=== PATIENT | female | born 1990 | race Caucasian/White ===

== ENCOUNTER 2017-03-11 21:30 | Emergency (ER) | payer MEDICAID ==
[~2017-03-11] VITALS: Ht 147.3 cm; Wt 51.4 kg
[~2017-03-11 21:30] MED LIST: LISI10TA3 PO; NORC5TAB PO; PENI500T PO
[2017-03-11 21:40] VITALS: BP 197/115; PULSE 92; RESP 20; TEMP 99; O2SAT 92
--- NOTE | 2017-03-11 22:08 | PD ---
HPI Chief Complaint: Fall Time Seen by Provider: 21:56 Travel History International Travel<30 days: No Contact w/Intl Traveler<30days: No Traveled to known affect area: No History of Present Illness HPI 26-year-old female complains of left-sided neck pain and left shoulder pain. Patient states that she fell a week ago on her buttock. Patient states that she started having persistent pain on left-sided neck, left shoulder pad And left shoulder since then. Patient denies any loss of consciousness. Patient denies any headache. Patient denies any focal weakness and numbness of extremity. Patient states the pain or left shoulder is worse with movement. Patient denies any chest pain or shortness of breath. Patient denies abdominal pain. Patient denies any back pain. Patient denies any chance of being . Patient states that she has a cold about 2 weeks ago. Patient denies earache or sore throat. Patient denies any fever chills. PFSH Past Medical History Cancer: No Cardiovascular Problems: Yes (HTN) Diminished Hearing: No Endocrine: No Genitourinary: No Hypertension: Yes Immune Disorder: No Musculoskeletal: No Neurologic: No Psychiatric: No Reproductive: No Respiratory: No Immunizations Current: Yes ?: Unknown LMP: 10 15 17 Past Surgical History Oral Surgery: Yes (WISDOM TEETH) Social History Alcohol Use: No Tobacco Use: No Substance Use: No Allergies-Medications (Allergen,Severity, Reaction): Coded Allergies: latex (Unverified Allergy, Severe, BLISTERS ON SKIN, 12/16/16) Reported Meds & Prescriptions Reported Meds & Active Scripts Active Review of Systems General / Constitutional: No: Fever Eyes: No: Visual changes HENT: Positive: Neck Pain, No: Headaches Cardiovascular: No: Chest Pain or Discomfort Respiratory: No: Shortness of Breath Gastrointestinal: No: Abdominal Pain Genitourinary: No: Dysuria Musculoskeletal: Positive: Pain Skin: No Rash Neurologic: No: Weakness Psychiatric: No: Depression Endocrine: No: Polydipsia Hematologic/Lymphatic: No: Easy Bruising Physical Exam Narrative GENERAL: Well-nourished, well-developed patient. SKIN: Focused skin assessment warm/dry. HEAD: Normocephalic. EYES: No scleral icterus. No injection or drainage. TM: Clear. Throat: Nonerythematous. NECK: Supple, trachea midline. No JVD . Patient has anterior and posterior cervical lymphadenopathy. No meningismus Patient has moderate tenderness on palpation paraspinal area cervical spine especially the left-sided neck. No midline tenderness. No crepitus no deformity noted. CARDIOVASCULAR: Regular rate and rhythm without murmurs, gallops, or rubs. RESPIRATORY: Breath sounds equal bilaterally. No accessory muscle use. GASTROINTESTINAL: Abdomen soft, non-tender, nondistended. MUSCULOSKELETAL: No cyanosis, or edema. Patient has moderate tenderness on palpation left shoulder pad area severe aspect left shoulder and around the clavicle area. Limited range of motion left shoulder secondary to pain. Sensorimotor function distally intact. BACK: Nontender without obvious deformity. No CVA tenderness. Neurologic exam normal. Data Data Last Documented VS Vital Signs Date Time Temp Pulse Resp B/P (MAP) Pulse Ox O2 Delivery O2 Flow Rate FiO2 03/11/17 22:03 18 100 Room Air 03/11/17 21:40 99.0 92 197/115 (142) Orders Orders Ct Cerv Spine W/O Contrast (03/11/17 21:59) Shoulder, Limited(2vws) (03/11/17 21:59) [facility] Medical Decision Making Medical Screen Exam Complete: Yes Emergency Medical Condition: Yes Interpretation(s) Last Impressions Shoulder X-Ray 03/11/172158 Signed Impressions: Service Date/Time: Saturday, March 11, 2017 22:08 - CONCLUSION: Unremarkable limited examination of the left shoulder. Shlomo Faust Jr., MD Cervical Spine CT 03/11/172158 Signed Impressions: Service Date/Time: Saturday, March 11, 2017 22:10 - CONCLUSION: 1. No fracture or dislocation. 2. Stranding of the subcutaneous fat involving the left neck as well as mild adenopathy of the left neck suggesting an acute inflammatory process with reactive adenopathy. Clinical evaluation for any signs of synovitis or lymphadenitis suggested. Shlomo Faust Jr., MD Differential Diagnosis Differential diagnosis including strain, fracture, dislocation. Narrative Course 26-year-old female with neck and left shoulder injury. Examination reveals cervical adenopathy. No obvious source of infection. Augmentin 875, one tablet by mouth given. Tylenol 650 mg by mouth given. Diagnosis Primary Impression: Cervical lymphadenitis Additional Impressions: Neck strain Qualified Codes: S16.1XXA - Strain of muscle, fascia and tendon at neck level , initial encounter Shoulder strain Qualified Codes: S46.912A - Strain of unspecified muscle, fascia and tendon at shoulder and upper arm level, left arm, initial encounter Patient Instructions: General Instructions Additional Instructions: Take medication as directed. Follow-up with local physician. Return if worse. Med/Other Pt SpecificInfo: Prescription(s) given Scripts Tramadol (Ultram) 50 Mg Tab 50 MG PO Q6H Y for PAIN, #12 TAB 0 Refills Prov: Gianni Rose MD 03/11/17 Meloxicam (Mobic) 15 Mg Tab 15 MG PO DAILY for Pain, #10 TAB 0 Refills Prov: Gianni Rose MD 03/11/17 Amoxicillin-Clavulanate (Augmentin) 875-125 Mg Tab 1 TAB PO BID for Infection, #20 TAB 0 Refills Prov: Gianni Rose MD 03/11/17 Disposition: 01 DISCHARGE HOME Condition: Stable Gianni Rose MD Mar 11, 2017 22:08
--- NOTE | 2017-03-11 22:29 | RADRPT ---
EXAM DATE/TIME: 03/11/2017 22:08 [facility] COMPARISON: No previous studies available for comparison. INDICATIONS : Left shoulder pain post fall 1 week ago MEDICAL HISTORY : None. SURGICAL HISTORY : None. ENCOUNTER: Initial ACUITY: 1 week PAIN SCORE: 8/10 LOCATION: Left entire shoulder FINDINGS: Two view examination of the left shoulder demonstrates no evidence of fracture or dislocation. The g lenohumeral and acromioclavicular joints are maintained. Bony mineralization is normal. CONCLUSION: Unremarkable limited examination of the left shoulder. Shlomo Faust Jr., MD on March 11, 2017 at 22:27 Board Certified Radiologist. This report was verified electronically.
--- NOTE | 2017-03-11 22:32 | RADRPT ---
EXAM DATE/TIME: 03/11/2017 22:10 [facility] COMPARISON: No previous studies available for comparison. INDICATIONS : Trauma, fall on side. RADIATION DOSE: 22.39 CTDIvol (mGy) MEDICAL HISTORY : None SURGICAL HISTORY : None. ENCOUNTER: Initial ACUITY: 1 week PAIN SCALE: 8/10 LOCATION: Right neck TECHNIQUE: Volumetric scanning of the cervical spine was performed. Multiplanar reconstructions in the sagittal, coronal and oblique axial planes were performed. Using automated exposure control and adjustment o f the mA and/or kV according to patient size, radiation dose was kept as low as reasonably achievable to obtain optimal diagnostic quality images. DICOM format image data is available electronically f or review and comparison. FINDINGS: VERTEBRAE: Normal vertebral body height. ALIGNMENT: No evidence of subluxation. There is stranding of the subcutaneous fat involving the left neck. This is both superficial and deep to the sternocleidomastoid muscle but is more pronounced posterior and deep to the sternocleidomasto id. Small level II cervical chain lymph nodes are seen on the left. Notable the adenopathy seen. C2-C3: The bony spinal canal is normal in size. No evidence of disc bulge or herniation. The neural forami na are bilaterally patent. C3-C4: The bony spinal canal is normal in size. No evidence of disc bulge or herniation. The neural forami na are bilaterally patent. C4-C5: The bony spinal canal is normal in size. No evidence of disc bulge or herniation. The neural forami na are bilaterally patent. C5-C6: The bony spinal canal is normal in size. No evidence of disc bulge or herniation. The neural forami na are bilaterally patent. C6-C7: The bony spinal canal is normal in size. No evidence of disc bulge or herniation. The neural forami na are bilaterally patent. C7-T1: The bony spinal canal is normal in size. No evidence of disc bulge or herniation. The neural forami na are bilaterally patent. CONCLUSION: 1. No fracture or dislocation. 2. Stranding of the subcutaneous fat involving the left neck as well as mild adenopathy of the left n ignacio suggesting an acute inflammatory process with reactive adenopathy. Clinical evaluation for any si gns of synovitis or lymphadenitis suggested. Shlomo Faust Jr., MD on March 11, 2017 at 22:28 Board Certified Radiologist. This report was verified electronically.
[2017-03-11] MEDS ORDERED: AMOXICILLIN/CLAVULANATE K 875 MG TAB PO ONE (22:45)
[2017-03-11] MEDS: ACETAMINOPHEN 325 MG TAB PO ONE ×2 (22:45→23:04)
[2017-03-11] MEDS ORDERED: TRAM50 PO (22:48)
[2017-03-11] MEDS ORDERED: AUGM875T3 PO (22:48)
[2017-03-11] MEDS ORDERED: MOBI15TA PO (22:48)
[2017-03-11 23:08] VITALS: BP 189/109
== END 2017-03-11 23:13 | disposition home or self-care (01) ==
LOC: PHED 21:30
DX: I88.9 Nonspecific lymphadenitis, unspecified (principal); S16.1XXA Strain of muscle, fascia and tendon at neck level, initial encounter; S46.912A Strain of unspecified muscle, fascia and tendon at shoulder and upper arm level, left arm, initial encounter; I10 Essential (primary) hypertension; W19.XXXA Unspecified fall, initial encounter
CPT/HCPCS: 72125; 73030; 99285

== ENCOUNTER 2017-03-23 10:20 | Emergency (ER) | payer BC ==
[~2017-03-23] VITALS: Ht 147.3 cm; Wt 50.5 kg
[~2017-03-23 10:20] MED LIST changes: +AUGM875T3 PO; -LISI10TA3 PO; +MOBI15TA PO; -NORC5TAB PO; -PENI500T PO; +TRAM50 PO
[2017-03-23 10:25] VITALS: BP 173/113; PULSE 81; RESP 16; TEMP 97.8; O2SAT 100
--- NOTE | 2017-03-23 10:52 | PD ---
HPI Chief Complaint: Headache Time Seen by Provider: 10:37 Travel History International Travel<30 days: No Contact w/Intl Traveler<30days: No Traveled to known affect area: No History of Present Illness HPI Patient is a 26-year-old female presents emergency department for evaluation of headache occipital in nature for the past 3 weeks. Patient was actually here at that time complaining of pain in her left neck and left shoulder. At that time she had a CAT scan of her neck which did show some left-sided cervical lymphadenopathy. She was referred to her primary care physician for further workup and she has not followed up yet. She states she doesn't have an appointment until May. When she was seen here previously she was placed on Ultram low back and Augmentin. She states despite antibiotic therapy her lymph nodes have gone down her headache persists. She states nothing is changed since she was here last. Denies any fever denies any cough congestion or weight loss. Boyfriend arrives and states that because they googled her symptoms they thought that she might have lymphoma. She denies any visual difficulties denies any focalized weakness PFSH Past Medical History Cancer: No Cardiovascular Problems: Yes (HTN) Diminished Hearing: No Endocrine: No Gastrointestinal Disorders: No Genitourinary: No Hypertension: Yes Immune Disorder: No Implanted Vascular Access Dvce: No Musculoskeletal: No Neurologic: No Psychiatric: No Reproductive: No Respiratory: No Immunizations Current: Yes ?: Not LMP: NOW : 4 Para: 4 Past Surgical History Oral Surgery: Yes (WISDOM TEETH) Other Surgery: No Social History Alcohol Use: No Tobacco Use: No Substance Use: No Allergies-Medications (Allergen,Severity, Reaction): Coded Allergies: latex (Unverified Allergy, Severe, BLISTERS ON SKIN, 03/23/17) Reported Meds & Prescriptions Reported Meds & Active Scripts Active Augmentin (Amoxicillin-Clavulanate) 875-125 Mg Tab 1 Tab PO BID Review of Systems Except as stated in HPI: all other systems reviewed are Neg Physical Exam Narrative GENERAL: Well-developed well-nourished, appears somewhat uncomfortable in no obvious distress. SKIN: Focused skin assessment warm/dry. HEAD: Atraumatic. Normocephalic. There is pinpoint tenderness to the posterior skull just to the right of the occipital prominence. EYES: Pupils equal and round. No scleral icterus. No injection or drainage. ENT: No nasal bleeding or discharge. Mucous membranes pink and moist. NECK: Trachea midline. No JVD. CARDIOVASCULAR: Regular rate and rhythm. No murmur appreciated. RESPIRATORY: No accessory muscle use. Clear to auscultation. Breath sounds equal bilaterally. GASTROINTESTINAL: Abdomen soft, non-tender, nondistended. Hepatic and splenic margins not palpable. MUSCULOSKELETAL: No obvious deformities. No clubbing. No cyanosis. No edema. NEUROLOGICAL: Awake and alert. Cranial nerves II through XII are grossly intact and nonfocal 5 out of 5 strength in all 4 extremities. Pulses motor and sensory intact distally in all 4 extremity's and relates with an even narrow based gait. Pupils equal and reactive to light and accommodation Data Data Last Documented VS Vital Signs Date Time Temp Pulse Resp B/P (MAP) Pulse Ox O2 Delivery O2 Flow Rate FiO2 03/23/17 10:25 97.8 81 16 173/113 (133) 100 Orders Orders Diphenhydramine (Benadryl) (03/23/17 11:00) Metoclopramide (Reglan) (03/23/17 11:00) Ed Discharge Order (03/23/17 11:36) MDM Medical Decision Making Medical Screen Exam Complete: Yes Emergency Medical Condition: Yes Differential Diagnosis Occipital headache, lymphoma, lymphadenopathy, migraine, cluster headache. Narrative Course Patient roomed in emergency department, she was recommended to have Reglan and Benadryl however she declined this stating she did not work. After was explained to her she continued to climb. She was offered Tylenol ibuprofen declined this. She was offered Ultram and declined this. I reviewed her records and indeed she did have CAT scan showing some lymphadenopathy with fat stranding, recommended highly that she pursue an outpatient biopsy, there is no indication further workup at this time. She does feel well enough to go home and ambulated from the emergency Department with her significant other in no distress. Diagnosis Primary Impression: Headache Qualified Codes: R51 - Headache Additional Impression: Lymphadenopathy Referrals: Kermit Bansal MD Additional Instructions: Follow up with Dr. Bansal of the ENT service. Call your primary care physician to see if there is an earlier appointment. You need to consider having a biopsy. Disposition: 01 DISCHARGE HOME Condition: Stable Luan Dejesus MD Mar 23, 2017 10:51
[2017-03-23] MEDS: METOCLOPRAMIDE HCL 10 MG TAB PO ONE ×2 (11:00→11:18)
[2017-03-23] MEDS: diphenhydrAMINE HCL 50 MG CAP PO ONE ×2 (11:00→11:18)
== END 2017-03-23 11:49 | disposition home or self-care (01) ==
LOC: PHED 10:20
DX: R51 Headache (principal); R59.0 Localized enlarged lymph nodes
CPT/HCPCS: 99281; Q0163